=== PATIENT | female | born 1945 | race Caucasian/White ===

== ENCOUNTER → 2022-07-08 | Outpatient (CLI) | payer MEDICARE, OTHER ==
[~2022-07-08] MED LIST: ASPI81CH PO; AZIT250 PO; BENZ100A PO; CALCAVITDA PO; FISH1000 PO; HYDCHL25 PO; LISI5; POTA8 PO; Percocet 5-3251 EACH PO
[2022-07-08 14:48] LABS: BASOPHILS ABSOLUTE AUTO 0.05 K/mm3 (0.00-0.23); BASOPHILS PERCENT AUTO 1 % (0-2); EOSINOPHILS ABSOLUTE AUTO 0.08 K/mm3 (0.00-0.68); EOSINOPHILS PERCENT AUTO 1 % (0-6); Hematocrit 42.4 % (33.0-51.0); Hemoglobin 14.1 g/dL (11.5-16.0); IMMATURE GRAN ABSOLUTE AUTO 0.01 K/mm3 (0.00-0.10); IMMATURE GRAN PERCENT AUTO 0 % (0-1); LYMPHOCYTES ABSOLUTE AUTO 3.51 K/mm3 (0.84-5.20); LYMPHOCYTES PERCENT AUTO 46 % (21-46); MONOCYTES ABSOLUTE AUTO 0.49 K/mm3 (0.16-1.47); MONOCYTES PERCENT AUTO 6 % (4-13); Mean Corpuscular HGB 30.7 pg (26.0-34.0); Mean Corpuscular HGB Conc 33.3 g/dL (31.5-36.5); Mean Corpuscular Volume 92 fL (80-100); NEUTROPHILS ABSOLUTE AUTO 3.49 K/mm3 (1.96-9.15); NEUTROPHILS PERCENT AUTO 46 % (41-73); Platelet Count 289 K/mm3 (150-400); RDW Coefficient Variation 12.6 % (11.7-14.2); RDW Standard Deviation 42.2 fL (35.1-46.3); White Blood Cell Count 7.63 K/mm3 (4.00-11.30)
[2022-07-08 20:13] LABS: LDL/HDL RATIO 3.9; Very Low Density Lipoprot Chol 27 mg/dL (6-32)
[2022-07-08 20:14] LABS: CHOL/HDL RATIO 5.6; Cholesterol 214 mg/dL (50-200); HDL Cholesterol 38 mg/dL (>39); Low Density Lipoprotein Chol 149 mg/dL (0-110); Triglycerides 135 mg/dL (30-160)
== END | disposition home or self-care (01) ==
LOC: LAB SHORT 13:06
PROVIDERS: Nurse Practitioner Family
DX: Z13.6 Encounter for screening for cardiovascular disorders (principal); I10 Essential (primary) hypertension
CPT/HCPCS: 80061; 85025

== ENCOUNTER 2022-10-31 19:32 | Emergency (ER) | payer MEDICARE, OTHER ==
[~2022-10-31] VITALS: Ht 160 cm; Wt 68.5 kg
[2022-10-31 19:53] VITALS: BP 160/82
[2022-10-31] MEDS ORDERED: ALENDRONATE SOD35 M6 PO (20:32)
[2022-10-31] MEDS ORDERED: ERYT.5TO BOTHEYES (22:25)
[2022-10-31] MEDS ORDERED: OCUFLOX510 LEFTEYE (22:25)
== END 2022-10-31 22:40 | disposition home or self-care (01) ==
LOC: ER 19:32
DX: S05.02XA Injury of conjunctiva and corneal abrasion without foreign body, left eye, initial encounter (principal); W22.8XXA Striking against or struck by other objects, initial encounter; Y93.89 Activity, other specified; Z79.82 Long term (current) use of aspirin; Z79.899 Other long term (current) drug therapy; I10 Essential (primary) hypertension; E78.5 Hyperlipidemia, unspecified
CPT/HCPCS: 99283; A9270